=== PATIENT | male | born 1975 | race Caucasian/White ===

== ENCOUNTER 2019-01-20 22:53 | Emergency (ER) | payer BC ==
[~2019-01-20] VITALS: Ht 177.8 cm; Wt 77.1 kg
--- NOTE | 2019-01-21 00:21 | NUR ---
Patient discharged to home in stable conditon. Written and verbal after care instructions given. Patient verbalizes understanding of instructions.
== END 2019-01-21 00:22 | disposition home or self-care (01) ==
LOC: ER 22:53
DX: H10.9 Unspecified conjunctivitis (principal)
CPT/HCPCS: A4663